=== PATIENT | female | born 1970 | race Caucasian/White ===

== ENCOUNTER 2016-11-25 09:21 | Emergency (ER) | payer SELFPAY ==
[~2016-11-25] VITALS: Ht 170.2 cm; Wt 54.4 kg
[2016-11-25 09:21] VITALS: BP 102/72
== END 2016-11-25 09:55 | disposition home or self-care (01) ==
LOC: ER 09:24
DX: Z76.0 Encounter for issue of repeat prescription (principal); E03.9 Hypothyroidism, unspecified
CPT/HCPCS: A4606; Z7502; Z7610

== ENCOUNTER 2017-01-07 10:41 | Emergency (ER) | payer MEDICAID ==
[2017-01-07 11:28] VITALS: BP 121/90
== END 2017-01-07 11:51 | disposition home or self-care (01) ==
LOC: ER 10:42
DX: Z76.0 Encounter for issue of repeat prescription (principal); E03.9 Hypothyroidism, unspecified
CPT/HCPCS: A4606; Z7610